=== PATIENT | male | born 1935 | race Caucasian/White ===

== ENCOUNTER 2019-04-15 12:51 | Outpatient (CLI) | payer MEDICARE, BC ==
[~2019-04-15 12:51] MED LIST: ALBU2.5V INH; ALBU90AE INH; ALBUTERO; ALLO300T PO; CHOL400C PO; CYAN-27 PO; DOCU-131 PO; DOXY100T PO; Folic Acid PO; Guaifenesin PO; LEVO175T5 PO; LISI-167 PO; LISI1TAB19 PO; METF10002 PO; MULT1TAB60 PO; SPIR25TA5 PO; THIA100T67 PO; albuterol sulfate INH
== END 2019-04-15 23:59 | disposition home or self-care (01) ==
LOC: CFH 12:51
PROVIDERS: ATTEND Family Medicine
DX: M79.89 Other specified soft tissue disorders (principal); M79.642 Pain in left hand

== ENCOUNTER → 2020-06-13 | Outpatient (CLI) | payer MEDICARE, BC ==
[~2020-06-13] MED LIST changes: -LISI1TAB19 PO; +LISI1TAB39 PO; +MULT-449 PO; -MULT1TAB60 PO
== END | disposition home or self-care (01) ==
LOC: CVU 07:11
PROVIDERS: ATTEND Internal Medicine Cardiovascular Disease
DX: I08.0 Rheumatic disorders of both mitral and aortic valves (principal); G60.3 Idiopathic progressive neuropathy; I10 Essential (primary) hypertension; E11.9 Type 2 diabetes mellitus without complications; R94.31 Abnormal electrocardiogram [ECG] [EKG]
CPT/HCPCS: 93306; 93922

== ENCOUNTER → 2020-06-22 | Outpatient (CLI) | payer MEDICARE, BC ==
[~2020-06-22] MED LIST changes: +REGADENOSON 0.4 MG/5 ML SYRINGE ONE
== END | disposition home or self-care (01) ==
LOC: CFH 08:18
PROVIDERS: ATTEND Internal Medicine Cardiovascular Disease
DX: R94.31 Abnormal electrocardiogram [ECG] [EKG] (principal); R06.02 Shortness of breath; I10 Essential (primary) hypertension; G60.3 Idiopathic progressive neuropathy
CPT/HCPCS: 78452; 93017; A9502; J2785